=== PATIENT | male | born 1965 | race Hispanic/Latino ===

== ENCOUNTER 2021-09-24 13:42 | Emergency (ER) | payer OTHER ==
[~2021-09-24] VITALS: Ht 167.6 cm; Wt 100.0 kg
[2021-09-24 14:02] VITALS: BP 147/66
[2021-09-24] MEDS ORDERED: METFORMIN HCL1000 MG PO (14:10)
[2021-09-24] MEDS ORDERED: GLIPIZIDE10 M2 PO (14:10)
[2021-09-24] MEDS ORDERED: DIOVAN HCT PO (14:11)
[2021-09-24] MEDS ORDERED: NORVASC5 M1 PO (14:11)
[2021-09-24] MEDS ORDERED: SINGULAIR10 MG PO (14:12)
[2021-09-24] MEDS ORDERED: ALOGLIPTIN25 MG PO (14:12)
[2021-09-24] MEDS ORDERED: ATORVASTATIN CA80 MG PO (14:13)
[2021-09-24] MEDS ORDERED: ASPIRIN ADULT L81 M2 PO (14:13)
[2021-09-24] MEDS ORDERED: FLUOXETINE20 MG PO (14:14)
[2021-09-24] MEDS ORDERED: NAPROXEN500 MG PO (14:22)
== END 2021-09-24 14:36 | disposition home or self-care (01) | DRG 558 ==
LOC: ED 13:42
DX: M76.9 Unspecified enthesopathy, lower limb, excluding foot (principal); I10 Essential (primary) hypertension; E11.9 Type 2 diabetes mellitus without complications; Z79.84 Long term (current) use of oral hypoglycemic drugs